=== PATIENT | male | born 1960 | race African-American/Black ===

== ENCOUNTER 2017-02-24 18:53 | Emergency (ER) | payer MEDICAID ==
[~2017-02-24] VITALS: Ht 167.6 cm; Wt 86.2 kg
[2017-02-24 21:02] VITALS: BP 147/90
== END 2017-02-24 21:01 | disposition home or self-care (01) ==
LOC: ER 18:57
DX: K04.7 Periapical abscess without sinus (principal); K02.9 Dental caries, unspecified; I10 Essential (primary) hypertension

== ENCOUNTER → 2019-08-02 | Emergency (ER) | payer MEDICAID, OTHER ==
[~2019-08-02] VITALS: Ht 167.6 cm; Wt 81.6 kg
[~2019-08-02] MED LIST: LIDOCAINE 2%HCL (LOCAL ANESTH.) INJ 20ML MDV ID ONE; NEOMYCIN-BACITRACIN-POLYM UNITDOSE PKG TOP OINT TOP ONE; TETANUS-DIPTH-ACEL PERTUSSIS 0.5ML SYR Tdap IM ONE
[2019-08-02 08:12] VITALS: BP 113/74
== END | disposition home or self-care (01) ==
LOC: EDUNIT# 03:32 → EDBD 03:38 → ER 03:38
DX: S01.511A Laceration without foreign body of lip, initial encounter (principal); S01.411A Laceration without foreign body of right cheek and temporomandibular area, initial encounter; I11.0 Hypertensive heart disease with heart failure; I50.9 Heart failure, unspecified; Y04.2XXA Assault by strike against or bumped into by another person, initial encounter; Y93.89 Activity, other specified; Y92.89 Other specified places as the place of occurrence of the external cause; Y99.8 Other external cause status
CPT/HCPCS: 12013; 70450; 70486; 73130; 90471; 90715